=== PATIENT | female | born 2000 | race African-American/Black ===

== ENCOUNTER 2024-03-18 13:54 | Inpatient (IN) | payer MEDICAID ==
[~2024-03-18] VITALS: Ht 160 cm; Wt 52.6 kg
[2024-03-18] MEDS ORDERED: HydrOXYzine PAMOATE 50 MG CAPSULE PO PRN (14:45)
[2024-03-18] MEDS ORDERED: LORazepam 2 MG/ML VIAL IM ONE (14:45)
[2024-03-18] MEDS ORDERED: HALOPERIDOL LACTATE 5 MG/ML VIAL IM ONE (14:45)
[2024-03-18] MEDS ORDERED: MAG HYDROX/ALUMINUM HYD/SIMETH ES 30 ML SUSPENSION UDCUP PO PRN (14:45)
[2024-03-18] MEDS ORDERED: DiphenhydrAMINE HCL 50 MG/ML VIAL IM ONE (14:45)
[2024-03-18] MEDS ORDERED: LOPERAMIDE HCL 2 MG CAPSULE PO PRN (14:45)
[2024-03-18] MEDS ORDERED: MAGNESIUM HYDROXIDE SUSPENSION 30 ML UDCUP PO PRN (14:45)
[2024-03-18] MEDS ORDERED: ACETAMINOPHEN 325 MG TABLET PO PRN (14:45)
[2024-03-18] MEDS ORDERED: GuaiFENesin/D-METHORPHAN [SUGAR-FREE] 200-20MG/10 ML SYRUP UDCUP PO PRN (14:45)
[2024-03-18] MEDS: OLANZapine 5 MG RAPDIS TABLET PO SCH (16:00)
[2024-03-18] MEDS: LORazepam 2 MG TABLET PO PRN (16:29)
[2024-03-18 16:46] VITALS: BP 119/71; PULSE 68; RESP 17; TEMP 97.1; O2SAT 99
[2024-03-18] MEDS: TUBERCULIN, PURIFIED PROTEIN DERIVATIVE 5 TU/0.1 ML SYRINGE ID ONE (17:00)
[2024-03-18 17:35] LABS: GLUCOMETER DEV NAME(LOC) POC.BV; POC SARS-COV2 AG, FIA NEGATIVE (NEGATIVE)
[2024-03-18] MEDS: THIAMINE 100 MG TABLET PO SCH (20:16)
[2024-03-18] MEDS: MELATONIN 5 MG TABLET PO SCH (20:16)
[2024-03-18 20:34] VITALS: BP 112/70; PULSE 93; RESP 16; TEMP 97.5; O2SAT 99
[2024-03-19] MEDS: MULTIVITAMINS WITH MINERALS, THERAPEUTIC TABLET PO SCH (08:04)
[2024-03-19] MEDS: NALTREXONE HCL 50 MG TABLET PO SCH (08:04)
[2024-03-19] MEDS: FOLIC ACID 1 MG TABLET PO SCH (08:04)
[2024-03-19 08:34] VITALS: BP 126/89; PULSE 66; RESP 16; TEMP 98.2; O2SAT 97
[2024-03-19] MEDS: PROMETHAZINE HCL 25 MG TABLET PO PRN (12:27)
[2024-03-19] MEDS ORDERED: ACETAMINOPHEN 325 MG TABLET PO PRN (14:30)
[2024-03-19] MEDS ORDERED: PROMETHAZINE HCL 25 MG TABLET PO PRN (14:30)
[2024-03-19] MEDS ORDERED: MAGNESIUM HYDROXIDE SUSPENSION 30 ML UDCUP PO PRN (14:30)
[2024-03-19] MEDS ORDERED: HydrOXYzine PAMOATE 50 MG CAPSULE PO PRN (14:30)
[2024-03-19] MEDS ORDERED: GuaiFENesin/D-METHORPHAN [SUGAR-FREE] 200-20MG/10 ML SYRUP UDCUP PO PRN (14:30)
[2024-03-19] MEDS ORDERED: TUBERCULIN, PURIFIED PROTEIN DERIVATIVE 5 TU/0.1 ML SYRINGE ID ONE (14:30)
[2024-03-19] MEDS ORDERED: MAG HYDROX/ALUMINUM HYD/SIMETH ES 30 ML SUSPENSION UDCUP PO PRN (14:30)
[2024-03-19] MEDS ORDERED: LOPERAMIDE HCL 2 MG CAPSULE PO PRN (14:30)
[2024-03-19] MEDS: THIAMINE 100 MG TABLET PO SCH (17:00)
[2024-03-19 21:34] VITALS: BP 132/84; PULSE 88; RESP 16; TEMP 97.7; O2SAT 97
[2024-03-19] MEDS ORDERED: QUEtiapine FUMARATE 100 MG TABLET PO PRN (23:00)
[2024-03-19] MEDS: ZOLPIDEM TARTRATE 10 MG TABLET PO PRN (23:30)
[2024-03-20] MEDS: OLANZapine 5 MG RAPDIS TABLET PO SCH (08:18)
[2024-03-20 08:47] LABS: PH,URINE DRUG SCREEN 6.5 (5.0-8.0)
[2024-03-20 08:47] LABS: BASOPHILS % (AUTO) 0.6 % (0.0-2.0); EOSINOPHILS % (AUTO) 2.3 % (1.0-6.0); HEMATOCRIT 37.6 % (36-46); HEMOGLOBIN 12.5 g/dL (12.0-16.0); LYMPHOCYTES # (AUTO) 1.7 K/uL (1.0-4.8); LYMPHOCYTES % (AUTO) 37.4 % (22.0-44.0); MEAN CORPUSCULAR HEMOGLOBIN 30.9 pg (26.0-34.0); MEAN CORPUSCULAR HGB CONC 33.2 G/dL (31.0-37.0); MEAN CORPUSCULAR VOLUME 93 fL (80-100); MONOCYTES # (AUTO) 0.4 K/uL (0.1-1.0); MONOCYTES % (AUTO) 7.9 % (2.0-9.0); NEUTROPHILS # (AUTO) 2.4 K/uL (1.8-7.7); NEUTROPHILS % (AUTO) 51.8 % (40.0-70.0); PLATELET COUNT (AUTO) 231 K/uL (150-450); RED BLOOD CELL COUNT(AUTO) 4.05 MIL/uL (4.00-5.20); RED CELL DISTRIBUTION WIDTH 14.1 % (11.5-14.5); WHITE BLOOD COUNT (AUTO) 4.7 K/uL (4.5-11.0)
[2024-03-20 08:56] LABS: ALCOHOL, URINE DRUG SCREEN NEGATIVE (NEGATIVE); AMPHET/METH SCREEN,URINE NEGATIVE (NEGATIVE); BARBITURATE SCREEN, URINE NEGATIVE (NEGATIVE); BENZODIAZEPINES SCREEN,URINE NEGATIVE (NEGATIVE); CANNABINOID SCREEN,URINE POSITIVE (NEGATIVE); COCAINE SCREEN,URINE NEGATIVE (NEGATIVE); METHADONE SCREEN, URINE NEGATIVE (NEGATIVE); OPIATE SCREEN,URINE NEGATIVE (NEGATIVE); PHENCYCLIDINE SCREEN,URINE NEGATIVE (NEGATIVE)
[2024-03-20] MEDS ORDERED: MULTIVITAMINS WITH MINERALS, THERAPEUTIC TABLET PO SCH (09:00)
[2024-03-20] MEDS ORDERED: FOLIC ACID 1 MG TABLET PO SCH (09:00)
[2024-03-20 09:01] LABS: HEMOGLOBIN A1C 5.3 % (3.8-5.6)
[2024-03-20 09:24] LABS: ALANINE AMINOTRANSFERASE 48 U/L (12-78); ALBUMIN 3.8 g/dL (3.4-5.0); ALKALINE PHOSPHATASE 57 U/L (46-116); ANION GAP 7 mmol/L (8-16); ASPARTATE AMINOTRANSFERASE 28 U/L (15-37); BILIRUBIN,TOTAL 0.6 mg/dL (0.1-1.0); CALCIUM, TOTAL 8.8 mg/dL (8.8-10.5); CARBON DIOXIDE 28 mmol/L (22-29); CHLORIDE 104 mmol/L (98-107); CHOL/HDL RATIO 1.8 (3.9-5.7); CHOLESTEROL 145 mg/dL (131-200); CREATININE 0.56 mg/dL (0.60-1.30); FREE T4 (FREE THYROXINE) 0.94 ng/dL (0.76-1.46); GLOMERULAR FILTR. RATE CALC > 60 mL/min (>60); GLUCOSE,RANDOM 98 mg/dL (70-110); HDL CHOLESTEROL 81 mg/dL (40-60); LDL CHOL (CALC.) 60 mg/dL (0-130); POTASSIUM 3.5 mmol/L (3.5-5.1); SODIUM SERUM 139 mmol/L (136-145); THYROID STIMULATING HORMONE 0.37 uIU/mL (0.36-3.74); TRIGLYCERIDES 20 mg/dL (15-150); UREA NITROGEN, BLOOD 8 mg/dL (7-18)
[2024-03-20 09:24] LABS: HCG,QUAL URINE NEGATIVE (NEGATIVE)
[2024-03-20 09:56] VITALS: BP 119/80; PULSE 62; RESP 17; TEMP 98.2; O2SAT 97
[2024-03-20] MEDS: OLANZapine 10 MG RAPDIS TABLET PO SCH (20:09)
[2024-03-20] MEDS: QUEtiapine FUMARATE 200 MG TABLET PO SCH (20:09)
[2024-03-21 08:24] VITALS: BP 126/76; PULSE 68; RESP 16; TEMP 98; O2SAT 100
[2024-03-21] MEDS: DIVALPROEX SODIUM 500 MG DR TABLET PO SCH (16:11)
[2024-03-21] MEDS: NICOTINE POLACRILEX 2 MG LOZENGE PO PRN (16:45)
[2024-03-21 19:11] LABS: GLUCOMETER DEV NAME(LOC) POC.BV; POC SARS-COV2 AG, FIA NEGATIVE (NEGATIVE)
[2024-03-21] MEDS: QUEtiapine FUMARATE 200 MG TABLET PO SCH (20:16)
[2024-03-21] MEDS: OLANZapine 7.5 MG TABLET PO SCH (20:16)
[2024-03-21 20:36] VITALS: BP 131/81; PULSE 81; RESP 16; TEMP 98.2; O2SAT 98
[2024-03-22] MEDS: LITHIUM CARBONATE 300 MG CAPSULE PO SCH (08:31)
[2024-03-22 08:36] VITALS: RESP 16
[2024-03-22] MEDS: OLANZapine 5 MG RAPDIS TABLET PO PRN (13:41)
[2024-03-22 17:48] VITALS: BP 131/78
[2024-03-22 20:00] VITALS: BP 117/76; PULSE 67; RESP 16; TEMP 97.3; O2SAT 99
[2024-03-23 08:25] VITALS: BP 119/73; PULSE 94; RESP 16; TEMP 97.6; O2SAT 100
[2024-03-23] MEDS ORDERED: DIVA-112 PO (15:38)
[2024-03-23] MEDS ORDERED: LITH300C3 PO (15:39)
[2024-03-23] MEDS ORDERED: QUET200T PO (15:40)
== END 2024-03-23 17:50 | disposition home or self-care (01) | DRG 753 ==
LOC: B3A 14:31
PROVIDERS: ADMIT Psychiatry & Neurology Psychiatry; ATTEND Psychiatry & Neurology Psychiatry
DX: F31.9 Bipolar disorder, unspecified (principal); R45.851 Suicidal ideations; D64.9 Anemia, unspecified; F17.210 Nicotine dependence, cigarettes, uncomplicated; F12.90 Cannabis use, unspecified, uncomplicated; Z20.822 Contact with and (suspected) exposure to COVID-19; Z79.899 Other long term (current) drug therapy
CPT/HCPCS: 80053; 80061; 80307; 83036; 84439; 84443; 84703; 85025; 86592

== ENCOUNTER 2024-05-30 16:21 | Inpatient (IN) | payer OTHER, MEDICAID ==
[~2024-05-30] VITALS: Ht 160 cm; Wt 59.0 kg
[~2024-05-30 16:21] MED LIST: DIVA-112 PO; LITH300C3 PO; QUET200T PO
[2024-05-30] MEDS: LORazepam 2 MG/ML VIAL IM ONE (16:40)
[2024-05-30] MEDS: DiphenhydrAMINE HCL 50 MG/ML VIAL IM ONE (16:41)
[2024-05-30] MEDS: HALOPERIDOL LACTATE 5 MG/ML VIAL IM ONE (16:41)
[2024-05-30 17:45] LABS: BASOPHILS % (AUTO) 0.9 % (0.0-2.0); EOSINOPHILS % (AUTO) 1.1 % (1.0-6.0); HEMATOCRIT 40.3 % (36-46); HEMOGLOBIN 13.3 g/dL (12.0-16.0); LYMPHOCYTES # (AUTO) 2.5 K/uL (1.0-4.8); LYMPHOCYTES % (AUTO) 25.9 % (22.0-44.0); MEAN CORPUSCULAR HEMOGLOBIN 30.6 pg (26.0-34.0); MEAN CORPUSCULAR HGB CONC 33.1 G/dL (31.0-37.0); MEAN CORPUSCULAR VOLUME 93 fL (80-100); MONOCYTES # (AUTO) 0.5 K/uL (0.1-1.0); MONOCYTES % (AUTO) 4.6 % (2.0-9.0); NEUTROPHILS # (AUTO) 6.7 K/uL (1.8-7.7); NEUTROPHILS % (AUTO) 67.5 % (40.0-70.0); PLATELET COUNT (AUTO) 248 K/uL (150-450); RED BLOOD CELL COUNT(AUTO) 4.36 MIL/uL (4.00-5.20); RED CELL DISTRIBUTION WIDTH 14.1 % (11.5-14.5); WHITE BLOOD COUNT (AUTO) 9.9 K/uL (4.5-11.0)
[2024-05-30 18:02] LABS: ALCOHOL, BLOOD (SERUM) < 3 mg/dL (0-10)
[2024-05-30 18:06] LABS: COVID AG,FIA SOURCE NASAL SWAB
[2024-05-30 18:09] LABS: ANION GAP 9 mmol/L (8-16); CALCIUM, TOTAL 8.8 mg/dL (8.8-10.5); CARBON DIOXIDE 26 mmol/L (22-29); CHLORIDE 103 mmol/L (98-107); CREATININE 0.77 mg/dL (0.60-1.30); GLOMERULAR FILTR. RATE CALC > 60 mL/min (>60); GLUCOSE,RANDOM 86 mg/dL (70-110); POTASSIUM 3.3 mmol/L (3.5-5.1); SODIUM SERUM 138 mmol/L (136-145); UREA NITROGEN, BLOOD 11 mg/dL (7-18)
[2024-05-30 18:24] LABS: SARS-COV2 (COVID) ANTIGEN,FIA Negative (Negative)
[2024-05-30] MEDS: POTASSIUM CHLORIDE 20 MEQ ER TABLET PO ONE (22:49)
[2024-05-31] MEDS: LORazepam 2 MG/ML VIAL IM ONE (06:53)
[2024-05-31] MEDS: HALOPERIDOL LACTATE 5 MG/ML VIAL IM ONE (06:53)
[2024-05-31] MEDS: DiphenhydrAMINE HCL 50 MG/ML VIAL IM ONE (06:53)
[2024-05-31 11:04] VITALS: O2SAT 98
[2024-05-31 11:26] LABS: ALCOHOL, URINE DRUG SCREEN NEGATIVE (NEGATIVE); AMPHET/METH SCREEN,URINE NEGATIVE (NEGATIVE); BARBITURATE SCREEN, URINE NEGATIVE (NEGATIVE); BENZODIAZEPINES SCREEN,URINE NEGATIVE (NEGATIVE); CANNABINOID SCREEN,URINE POSITIVE (NEGATIVE); COCAINE SCREEN,URINE NEGATIVE (NEGATIVE); METHADONE SCREEN, URINE NEGATIVE (NEGATIVE); OPIATE SCREEN,URINE NEGATIVE (NEGATIVE); PHENCYCLIDINE SCREEN,URINE NEGATIVE (NEGATIVE)
[2024-05-31 13:38] VITALS: BP 128/81; PULSE 80; RESP 18; TEMP 98.2; O2SAT 95
[2024-05-31] MEDS ORDERED: IBUPROFEN 600 MG TABLET PO PRN (19:15)
[2024-05-31] MEDS ORDERED: DOCUSATE SODIUM 100 MG CAPSULE PO PRN (19:15)
[2024-05-31] MEDS ORDERED: CloNIDine HCL 0.1 MG TABLET PO PRN (19:15)
[2024-05-31] MEDS ORDERED: OMEPRAZOLE 20 MG CAPSULE PO PRN (19:15)
[2024-05-31] MEDS ORDERED: ACETAMINOPHEN 325 MG TABLET PO PRN (19:15)
[2024-05-31] MEDS ORDERED: BACITRACIN 28 GM OINTMENT TP PRN (19:15)
[2024-05-31] MEDS ORDERED: BENZOCAINE/MENTHOL LOZENGE PO PRN (19:15)
[2024-05-31] MEDS ORDERED: ONDANSETRON 4 MG TABLET PO PRN (19:15)
[2024-05-31] MEDS ORDERED: ALBUTEROL SULFATE HFA 90 MCG/PUFF 8 GM INHALER IH PRN (19:15)
[2024-05-31] MEDS ORDERED: LOPERAMIDE HCL 2 MG CAPSULE PO PRN (19:15)
[2024-05-31] MEDS ORDERED: MAG HYDROX/ALUMINUM HYD/SIMETH ES 30 ML SUSPENSION UDCUP PO PRN (19:15)
[2024-05-31] MEDS: INFLUENZA VIRUS VACCINE TVS (6MO+) 2024-25/PF 45 MCG/0.5 ML SYRINGE IM. ONE (20:18)
[2024-05-31] MEDS: ZOLPIDEM TARTRATE 10 MG TABLET PO PRN (20:18)
[2024-05-31 20:30] VITALS: BP 133/75; PULSE 91; RESP 16; TEMP 97.6; O2SAT 98
[2024-06-01] MEDS: HALOPERIDOL 5 MG TABLET PO PRN (03:00)
[2024-06-01] MEDS: LORazepam 2 MG TABLET PO PRN (03:00)
[2024-06-01 08:18] VITALS: BP 119/76; PULSE 99; RESP 16; TEMP 97.6; O2SAT 98
[2024-06-01 10:00] LABS: APPEARANCE,URINE CLEAR (CLEAR); BILIRUBIN,URINE NEGATIVE (NEGATIVE); COLOR,URINE COLORLESS (YELLOW); GLUCOSE, URINE (UA) NEGATIVE (NEGATIVE); KETONES,URINE NEGATIVE (NEGATIVE); LEUKOCYTE ESTERASE ,URINE SMALL (NEGATIVE); NITRATE,URINE NEGATIVE (NEGATIVE); OCCULT BLOOD,URINE NEGATIVE (NEGATIVE); PH,URINE 5.5 (5.0-8.0); PROTEIN,URINE NEGATIVE (NEGATIVE); SPECIFIC GRAVITIY, URINE 1.003 (1.003-1.030); UROBILINOGEN,URINE <=1.0 mg/dL (<=1.0)
[2024-06-01] MEDS ORDERED: NICOTINE POLACRILEX 2 MG LOZENGE PO PRN (10:00)
[2024-06-01 10:27] LABS: RBC,URINE None Seen /HPF (0-2)
[2024-06-01 10:28] LABS: BACTERIA,URINE Rare /HPF (None Seen)
[2024-06-01] MEDS: HALOPERIDOL LACTATE 5 MG/ML VIAL IM ONE (13:29)
[2024-06-01] MEDS: LORazepam 2 MG/ML VIAL IM ONE (13:29)
[2024-06-01] MEDS: DiphenhydrAMINE HCL 50 MG/ML VIAL IM ONE (13:30)
[2024-06-01] MEDS: MetroNIDAZOLE 500 MG TABLET PO SCH (16:45)
[2024-06-01] MEDS: DIVALPROEX SODIUM 500 MG DR TABLET PO SCH (17:00)
[2024-06-01] MEDS: QUEtiapine FUMARATE 200 MG TABLET PO SCH (20:10)
[2024-06-01 20:14] VITALS: BP 129/76; PULSE 95; RESP 17; TEMP 97.8; O2SAT 99
[2024-06-01] MEDS: PETROLATUM,WHITE 28 GM JELLY TP PRN (20:16)
[2024-06-02] MEDS: NICOTINE POLACRILEX 2 MG LOZENGE PO PRN (00:25)
[2024-06-02] MEDS: LITHIUM CARBONATE 300 MG CAPSULE PO SCH (08:35)
[2024-06-02 09:28] VITALS: BP 100/60; PULSE 85; RESP 16; TEMP 97.3; O2SAT 98
[2024-06-02 20:06] VITALS: BP 125/82; PULSE 87; RESP 18; TEMP 97.7
[2024-06-02] MEDS ORDERED: LORazepam 2 MG/ML VIAL ONE (23:52)
[2024-06-02] MEDS ORDERED: HALOPERIDOL LACTATE 5 MG/ML VIAL ONE (23:52)
[2024-06-02] MEDS ORDERED: DiphenhydrAMINE HCL 50 MG/ML VIAL ONE (23:52)
[2024-06-03] MEDS: LORazepam 2 MG/ML VIAL IM ONE ×2 (00:13→11:22)
[2024-06-03] MEDS: HALOPERIDOL LACTATE 5 MG/ML VIAL IM ONE ×2 (00:13→11:22)
[2024-06-03] MEDS: DiphenhydrAMINE HCL 50 MG/ML VIAL IM ONE ×2 (00:14→11:22)
[2024-06-03 08:15] VITALS: RESP 18
[2024-06-03 20:10] VITALS: BP 113/75; PULSE 90; RESP 18; TEMP 96.5; O2SAT 98
[2024-06-04 08:27] VITALS: BP 134/85; PULSE 102; RESP 17; TEMP 97.5; O2SAT 98
[2024-06-04] MEDS: QUEtiapine FUMARATE 200 MG TABLET PO SCH (09:00)
[2024-06-04] MEDS ORDERED: DiphenhydrAMINE HCL 50 MG/ML VIAL ONE (13:55)
[2024-06-04] MEDS ORDERED: HALOPERIDOL LACTATE 5 MG/ML VIAL ONE (13:55)
[2024-06-04] MEDS ORDERED: LORazepam 2 MG/ML VIAL ONE (13:55)
[2024-06-04] MEDS: LORazepam 2 MG/ML VIAL IM ONE (14:24)
[2024-06-04] MEDS: DiphenhydrAMINE HCL 50 MG/ML VIAL IM ONE (14:24)
[2024-06-04] MEDS: HALOPERIDOL LACTATE 5 MG/ML VIAL IM ONE (14:24)
[2024-06-04 20:06] VITALS: RESP 17
[2024-06-05 08:14] VITALS: BP 136/77; PULSE 84; RESP 17; TEMP 97.5; O2SAT 96
[2024-06-05] MEDS ORDERED: LORazepam 2 MG/ML VIAL ONE (13:31)
[2024-06-05] MEDS ORDERED: HALOPERIDOL LACTATE 5 MG/ML VIAL ONE (13:31)
[2024-06-05] MEDS ORDERED: DiphenhydrAMINE HCL 50 MG/ML VIAL ONE (13:31)
[2024-06-05] MEDS: HALOPERIDOL LACTATE 5 MG/ML VIAL IM ONE ×2 (14:16→14:42)
[2024-06-05] MEDS: LORazepam 2 MG/ML VIAL IM ONE ×2 (14:16→14:42)
[2024-06-05] MEDS: DiphenhydrAMINE HCL 50 MG/ML VIAL IM ONE ×2 (14:18→14:43)
[2024-06-06 08:14] VITALS: RESP 17
[2024-06-06 21:05] VITALS: BP 132/83; PULSE 101; RESP 15; TEMP 97.6; O2SAT 98
[2024-06-07 08:11] VITALS: BP 128/82; PULSE 77; RESP 16; TEMP 96.8; O2SAT 98
[2024-06-08 08:35] VITALS: BP 126/82; PULSE 84; RESP 16; TEMP 97.7; O2SAT 98
[2024-06-08 22:24] VITALS: RESP 18
[2024-06-09 08:20] VITALS: BP 124/87; PULSE 90; RESP 16; TEMP 96.7; O2SAT 99
[2024-06-09 22:45] VITALS: BP 115/66; PULSE 87; RESP 18; TEMP 98.2; O2SAT 96
[2024-06-10] MEDS: MAGNESIUM HYDROXIDE SUSPENSION 30 ML UDCUP PO PRN (06:37)
[2024-06-10 08:06] VITALS: BP 126/70; PULSE 82; RESP 16; TEMP 97.9; O2SAT 98
[2024-06-10] MEDS ORDERED: LITHIUM CARBONATE 300 MG CAPSULE PO SCH (21:00)
== END 2024-06-10 10:30 | disposition home or self-care (01) | DRG 885 ==
LOC: EMS 16:21 → B3A 05-31 12:25
PROVIDERS: ADMIT Psychiatry & Neurology Psychiatry; ATTEND Psychiatry & Neurology Psychiatry
DX: F31.9 Bipolar disorder, unspecified (principal); F12.10 Cannabis abuse, uncomplicated; F41.9 Anxiety disorder, unspecified; K21.9 Gastro-esophageal reflux disease without esophagitis; Z20.822 Contact with and (suspected) exposure to COVID-19; K59.00 Constipation, unspecified; G47.00 Insomnia, unspecified; E87.6 Hypokalemia; F17.200 Nicotine dependence, unspecified, uncomplicated; F22 Delusional disorders; R45.850 Homicidal ideations; Z79.899 Other long term (current) drug therapy
CPT/HCPCS: 80048; 80307; 81001; 84132; 84703; 85025; 99291; G0480; J1200; J1630; J2060

== ENCOUNTER 2024-06-10 18:57 | Inpatient (IN) | payer OTHER, MEDICAID ==
[~2024-06-10] VITALS: Ht 160 cm; Wt 59.0 kg
[2024-06-10] MEDS: LORazepam 2 MG/ML VIAL IM ONE (23:47)
[2024-06-10] MEDS: DiphenhydrAMINE HCL 50 MG/ML VIAL IM ONE (23:47)
[2024-06-10] MEDS: HALOPERIDOL LACTATE 5 MG/ML VIAL IM ONE (23:48)
[2024-06-11 01:24] LABS: COVID AG,FIA SOURCE NASAL SWAB
[2024-06-11 01:35] LABS: SARS-COV2 (COVID) ANTIGEN,FIA Negative (Negative)
[2024-06-11] MEDS: ChlorproMAZINE HCL 50 MG/2 ML AMP IM ONE (02:04)
[2024-06-11 02:32] VITALS: O2SAT 99
[2024-06-11 03:43] VITALS: BP 119/56; PULSE 93; RESP 17
[2024-06-11] MEDS ORDERED: INFLUENZA VIRUS VACCINE TVS (6MO+) 2024-25/PF 45 MCG/0.5 ML SYRINGE IM. ONE (04:15)
[2024-06-11 08:11] VITALS: RESP 16
[2024-06-11] MEDS: DiphenhydrAMINE HCL 50 MG/ML VIAL IM ONE (09:51)
[2024-06-11] MEDS: LORazepam 2 MG/ML VIAL IM ONE (09:52)
[2024-06-11] MEDS: HALOPERIDOL LACTATE 5 MG/ML VIAL IM ONE (09:52)
[2024-06-11] MEDS ORDERED: ALBUTEROL SULFATE HFA 90 MCG/PUFF 8 GM INHALER IH PRN (11:00)
[2024-06-11] MEDS ORDERED: CloNIDine HCL 0.1 MG TABLET PO PRN (11:00)
[2024-06-11] MEDS ORDERED: ONDANSETRON 4 MG TABLET PO PRN (11:00)
[2024-06-11] MEDS ORDERED: OMEPRAZOLE 20 MG CAPSULE PO PRN (11:00)
[2024-06-11] MEDS ORDERED: LOPERAMIDE HCL 2 MG CAPSULE PO PRN (11:00)
[2024-06-11] MEDS ORDERED: ACETAMINOPHEN 325 MG TABLET PO PRN (11:00)
[2024-06-11] MEDS ORDERED: MAG HYDROX/ALUMINUM HYD/SIMETH ES 30 ML SUSPENSION UDCUP PO PRN (11:00)
[2024-06-11] MEDS ORDERED: BENZOCAINE/MENTHOL LOZENGE PO PRN (11:00)
[2024-06-11] MEDS ORDERED: MAGNESIUM HYDROXIDE SUSPENSION 30 ML UDCUP PO PRN (11:00)
[2024-06-11] MEDS ORDERED: PETROLATUM,WHITE 28 GM JELLY TP PRN (11:00)
[2024-06-11] MEDS ORDERED: IBUPROFEN 600 MG TABLET PO PRN (11:00)
[2024-06-11] MEDS ORDERED: DOCUSATE SODIUM 100 MG CAPSULE PO PRN (11:00)
[2024-06-11] MEDS ORDERED: BACITRACIN 28 GM OINTMENT TP PRN (11:00)
[2024-06-11 15:21] LABS: APPEARANCE,URINE CLEAR (CLEAR); BILIRUBIN,URINE NEGATIVE (NEGATIVE); COLOR,URINE LIGHT YELLOW (YELLOW); GLUCOSE, URINE (UA) NEGATIVE (NEGATIVE); KETONES,URINE NEGATIVE (NEGATIVE); LEUKOCYTE ESTERASE ,URINE NEGATIVE (NEGATIVE); NITRATE,URINE NEGATIVE (NEGATIVE); OCCULT BLOOD,URINE NEGATIVE (NEGATIVE); PROTEIN,URINE NEGATIVE (NEGATIVE); UROBILINOGEN,URINE <=1.0 mg/dL (<=1.0)
[2024-06-11 15:28] LABS: ALCOHOL, URINE DRUG SCREEN NEGATIVE (NEGATIVE); AMPHET/METH SCREEN,URINE NEGATIVE (NEGATIVE); BARBITURATE SCREEN, URINE NEGATIVE (NEGATIVE); BENZODIAZEPINES SCREEN,URINE NEGATIVE (NEGATIVE); CANNABINOID SCREEN,URINE NEGATIVE (NEGATIVE); COCAINE SCREEN,URINE NEGATIVE (NEGATIVE); METHADONE SCREEN, URINE NEGATIVE (NEGATIVE); OPIATE SCREEN,URINE NEGATIVE (NEGATIVE); PHENCYCLIDINE SCREEN,URINE NEGATIVE (NEGATIVE)
[2024-06-11] MEDS: DIVALPROEX SODIUM 500 MG DR TABLET PO SCH (16:29)
[2024-06-11] MEDS: LITHIUM CARBONATE 300 MG CAPSULE PO SCH (16:30)
[2024-06-11] MEDS ORDERED: LITHIUM CARBONATE 300 MG CAPSULE PO SCH (17:00)
[2024-06-11] MEDS: QUEtiapine FUMARATE 200 MG TABLET PO SCH (20:06)
[2024-06-11 20:11] VITALS: BP 122/64; PULSE 89; RESP 16; TEMP 97.5; O2SAT 98
[2024-06-12 08:16] VITALS: BP 121/64; PULSE 100; RESP 16; TEMP 96.9; O2SAT 100
[2024-06-12] MEDS: LORazepam 2 MG TABLET PO PRN (08:33)
[2024-06-12] MEDS: HALOPERIDOL 5 MG TABLET PO PRN (08:33)
[2024-06-12 20:14] VITALS: BP 120/63; PULSE 95; RESP 18; TEMP 97.9; O2SAT 100
[2024-06-12] MEDS: ZOLPIDEM TARTRATE 10 MG TABLET PO PRN (21:03)
[2024-06-13 08:24] VITALS: RESP 16
[2024-06-13] MEDS: QUEtiapine FUMARATE 200 MG TABLET PO SCH (19:07)
[2024-06-13 20:18] VITALS: BP 127/78; PULSE 93; RESP 16; TEMP 98; O2SAT 93
[2024-06-14] MEDS ORDERED: DIVA-112 PO (11:41)
[2024-06-14] MEDS ORDERED: QUET200T30 PO (11:41)
[2024-06-14] MEDS ORDERED: LITH300C3 PO (11:41)
== END 2024-06-14 13:00 | disposition home or self-care (01) | DRG 885 ==
LOC: EMS 18:57 → B3A 06-11 03:12 → B2S 06-13 16:41
PROVIDERS: ADMIT Psychiatry & Neurology Psychiatry; ATTEND Psychiatry & Neurology Psychiatry
DX: F31.9 Bipolar disorder, unspecified (principal); F20.9 Schizophrenia, unspecified; F41.9 Anxiety disorder, unspecified; G47.00 Insomnia, unspecified; K21.9 Gastro-esophageal reflux disease without esophagitis; K59.00 Constipation, unspecified; F17.200 Nicotine dependence, unspecified, uncomplicated; Z20.822 Contact with and (suspected) exposure to COVID-19; Z79.899 Other long term (current) drug therapy
CPT/HCPCS: 80307; 81003; 87081; 99291; J1200; J1630; J2060; J3230

== ENCOUNTER 2024-06-13 11:51 | Emergency (ER) | payer OTHER, MEDICAID ==
[~2024-06-13] VITALS: Ht 162.6 cm; Wt 60.5 kg
[2024-06-13 12:40] VITALS: TEMP 98.1
[2024-06-13 14:01] VITALS: BP 130/67; PULSE 90; RESP 14; O2SAT 99
[2024-06-14] MEDS ORDERED: DIVA-112 PO (11:41)
[2024-06-14] MEDS ORDERED: LITH300C3 PO (11:41)
[2024-06-14] MEDS ORDERED: QUET200T30 PO (11:41)
== END 2024-06-13 14:50 | disposition home or self-care (01) ==
LOC: EMS 11:51
DX: S09.90XA Unspecified injury of head, initial encounter (principal); F31.9 Bipolar disorder, unspecified; F17.210 Nicotine dependence, cigarettes, uncomplicated; F12.90 Cannabis use, unspecified, uncomplicated; W22.8XXA Striking against or struck by other objects, initial encounter; Y93.89 Activity, other specified; Y92.89 Other specified places as the place of occurrence of the external cause; Y99.8 Other external cause status
CPT/HCPCS: 99281; Z7502

== ENCOUNTER 2024-06-19 04:51 | Inpatient (IN) | payer OTHER, MEDICAID ==
[~2024-06-19] VITALS: Ht 160 cm; Wt 133.9 kg
[~2024-06-19 04:51] MED LIST changes: +QUET200T30 PO
[2024-06-19] MEDS: DiphenhydrAMINE HCL 50 MG/ML VIAL IM ONE (05:08)
[2024-06-19] MEDS: LORazepam 2 MG/ML VIAL IM ONE (05:09)
[2024-06-19] MEDS: HALOPERIDOL LACTATE 5 MG/ML VIAL IM ONE (05:17)
[2024-06-19] MEDS ORDERED: HALOPERIDOL 5 MG TABLET PO PRN (06:00)
[2024-06-19 09:11] LABS: COVID AG,FIA SOURCE NASAL SWAB
[2024-06-19 09:15] LABS: BASOPHILS % (AUTO) 0.6 % (0.0-2.0); EOSINOPHILS % (AUTO) 1.6 % (1.0-6.0); HEMATOCRIT 38.7 % (36-46); HEMOGLOBIN 13.1 g/dL (12.0-16.0); LYMPHOCYTES # (AUTO) 2.1 K/uL (1.0-4.8); LYMPHOCYTES % (AUTO) 31.6 % (22.0-44.0); MEAN CORPUSCULAR HEMOGLOBIN 31.2 pg (26.0-34.0); MEAN CORPUSCULAR HGB CONC 33.9 G/dL (31.0-37.0); MEAN CORPUSCULAR VOLUME 92 fL (80-100); MONOCYTES # (AUTO) 0.6 K/uL (0.1-1.0); MONOCYTES % (AUTO) 8.4 % (2.0-9.0); NEUTROPHILS # (AUTO) 3.9 K/uL (1.8-7.7); NEUTROPHILS % (AUTO) 57.8 % (40.0-70.0); PLATELET COUNT (AUTO) 307 K/uL (150-450); RED BLOOD CELL COUNT(AUTO) 4.21 MIL/uL (4.00-5.20); WHITE BLOOD COUNT (AUTO) 6.8 K/uL (4.5-11.0)
[2024-06-19 09:28] LABS: ANION GAP 5 mmol/L (8-16); CALCIUM, TOTAL 8.7 mg/dL (8.8-10.5); CARBON DIOXIDE 28 mmol/L (22-29); CHLORIDE 104 mmol/L (98-107); CREATININE 0.66 mg/dL (0.60-1.30); GLOMERULAR FILTR. RATE CALC > 60 mL/min (>60); GLUCOSE,RANDOM 95 mg/dL (70-110); POTASSIUM 3.6 mmol/L (3.5-5.1); SODIUM SERUM 137 mmol/L (136-145); UREA NITROGEN, BLOOD 8 mg/dL (7-18)
[2024-06-19 09:55] LABS: ALCOHOL, BLOOD (SERUM) < 3 mg/dL (0-10)
[2024-06-19 10:15] LABS: SARS-COV2 (COVID) ANTIGEN,FIA Negative (Negative)
[2024-06-19 12:21] VITALS: O2SAT 100
[2024-06-19] MEDS ORDERED: MAG HYDROX/ALUMINUM HYD/SIMETH ES 30 ML SUSPENSION UDCUP PO PRN (13:00)
[2024-06-19] MEDS ORDERED: BENZOCAINE/MENTHOL LOZENGE PO PRN (13:00)
[2024-06-19] MEDS ORDERED: PETROLATUM,WHITE 28 GM JELLY TP PRN ×2 (13:00→19:30)
[2024-06-19] MEDS ORDERED: IBUPROFEN 600 MG TABLET PO PRN (13:00)
[2024-06-19] MEDS ORDERED: DOCUSATE SODIUM 100 MG CAPSULE PO PRN (13:00)
[2024-06-19] MEDS ORDERED: MAGNESIUM HYDROXIDE SUSPENSION 30 ML UDCUP PO PRN (13:00)
[2024-06-19] MEDS ORDERED: OMEPRAZOLE 20 MG CAPSULE PO PRN (13:00)
[2024-06-19] MEDS ORDERED: ALBUTEROL SULFATE HFA 90 MCG/PUFF 8 GM INHALER IH PRN (13:00)
[2024-06-19] MEDS ORDERED: ACETAMINOPHEN 325 MG TABLET PO PRN (13:00)
[2024-06-19] MEDS ORDERED: BACITRACIN 28 GM OINTMENT TP PRN (13:00)
[2024-06-19] MEDS ORDERED: CloNIDine HCL 0.1 MG TABLET PO PRN (13:00)
[2024-06-19] MEDS ORDERED: LOPERAMIDE HCL 2 MG CAPSULE PO PRN (13:00)
[2024-06-19] MEDS ORDERED: ONDANSETRON 4 MG TABLET PO PRN (13:00)
[2024-06-19 15:39] VITALS: BP 129/86; PULSE 78; RESP 18; TEMP 97.8; O2SAT 98
[2024-06-19 18:56] LABS: PH,URINE DRUG SCREEN 6.5 (5.0-8.0)
[2024-06-19 19:04] LABS: ALCOHOL, URINE DRUG SCREEN NEGATIVE (NEGATIVE); AMPHET/METH SCREEN,URINE NEGATIVE (NEGATIVE); BARBITURATE SCREEN, URINE NEGATIVE (NEGATIVE); BENZODIAZEPINES SCREEN,URINE NEGATIVE (NEGATIVE); CANNABINOID SCREEN,URINE POSITIVE (NEGATIVE); COCAINE SCREEN,URINE NEGATIVE (NEGATIVE); METHADONE SCREEN, URINE NEGATIVE (NEGATIVE); OPIATE SCREEN,URINE NEGATIVE (NEGATIVE); PHENCYCLIDINE SCREEN,URINE NEGATIVE (NEGATIVE)
[2024-06-19] MEDS: ZOLPIDEM TARTRATE 10 MG TABLET PO PRN (21:07)
[2024-06-19] MEDS: LORazepam 2 MG TABLET PO PRN (21:07)
[2024-06-19 21:33] VITALS: BP 126/81; PULSE 82; RESP 18; TEMP 97.9
[2024-06-20] MEDS ORDERED: INFLUENZA VIRUS VACCINE TVS (6MO+) 2024-25/PF 45 MCG/0.5 ML SYRINGE IM. ONE (06:45)
[2024-06-20 13:20] VITALS: BP 131/90; PULSE 83; RESP 17; TEMP 98.4; O2SAT 100
[2024-06-20] MEDS: QUEtiapine FUMARATE 200 MG TABLET PO SCH (17:21)
[2024-06-20] MEDS: LITHIUM CARBONATE 300 MG CAPSULE PO SCH (17:22)
[2024-06-20] MEDS: DIVALPROEX SODIUM 500 MG DR TABLET PO SCH (17:22)
[2024-06-20 21:40] VITALS: RESP 18
[2024-06-21 09:28] VITALS: RESP 18
[2024-06-21] MEDS: PALIPERIDONE PALMITATE 234 MG/1.5 ML SYRINGE IM SCH (13:17)
[2024-06-21] MEDS: LORazepam 2 MG/ML VIAL IM ONE (20:27)
[2024-06-21] MEDS: HALOPERIDOL LACTATE 5 MG/ML VIAL IM ONE (20:28)
[2024-06-21] MEDS: DiphenhydrAMINE HCL 50 MG/ML VIAL IM ONE (20:28)
[2024-06-22 10:46] VITALS: BP 105/69; PULSE 72; RESP 18; TEMP 97.3; O2SAT 99
[2024-06-22 22:49] VITALS: RESP 18
[2024-06-23 11:04] VITALS: BP 103/62; PULSE 83; RESP 18; TEMP 97.6; O2SAT 100
[2024-06-23 20:04] VITALS: RESP 18
[2024-06-24 09:00] VITALS: RESP 19
[2024-06-24 13:37] LABS: LITHIUM 0.6 mmol/L (0.60-1.20)
[2024-06-24] MEDS ORDERED: LITH300C3 PO (16:31)
[2024-06-24] MEDS ORDERED: QUET400T PO (16:31)
[2024-06-24 23:25] VITALS: RESP 18
[2024-06-25 10:18] VITALS: BP 143/71; PULSE 97; RESP 18; TEMP 97.9; O2SAT 100
== END 2024-06-25 11:50 | disposition home or self-care (01) | DRG 885 ==
LOC: EMS 04:52 → 3EC 11:39
PROVIDERS: ADMIT Psychiatry & Neurology Psychiatry; ATTEND Psychiatry & Neurology Psychiatry
PROC: GZ52ZZZ Individual Psychotherapy, Cognitive (ICD-10-PCS; principal; 2024-06-20)
DX: F25.0 Schizoaffective disorder, bipolar type (principal); Z20.822 Contact with and (suspected) exposure to COVID-19; K21.9 Gastro-esophageal reflux disease without esophagitis; K59.00 Constipation, unspecified; F41.9 Anxiety disorder, unspecified; G47.00 Insomnia, unspecified; F17.210 Nicotine dependence, cigarettes, uncomplicated; F12.10 Cannabis abuse, uncomplicated; Z91.199 Patient's noncompliance with other medical treatment and regimen due to unspecified reason; Z91.148 Patient's other noncompliance with medication regimen for other reason; Z79.899 Other long term (current) drug therapy
CPT/HCPCS: 80048; 80164; 80178; 80307; 84703; 85025; 86592; 99285; G0480; J1200; J1630; J2060

== ENCOUNTER 2024-08-15 17:54 | Inpatient (IN) | payer OTHER, MEDICAID ==
[~2024-08-15] VITALS: Ht 160 cm; Wt 61.7 kg
[~2024-08-15 17:54] MED LIST changes: -QUET200T PO; -QUET200T30 PO; +QUET400T PO
[2024-08-15] MEDS: LORazepam 2 MG/ML VIAL IM ONE (18:29)
[2024-08-15] MEDS: DiphenhydrAMINE HCL 50 MG/ML VIAL IM ONE (18:29)
[2024-08-15] MEDS ORDERED: LORazepam 2 MG TABLET PO PRN (18:30)
[2024-08-15] MEDS: HALOPERIDOL LACTATE 5 MG/ML VIAL IM ONE (18:30)
[2024-08-15] MEDS ORDERED: HALOPERIDOL 5 MG TABLET PO PRN (18:30)
[2024-08-15] MEDS: ZIPRASIDONE MESYLATE 20 MG/VIAL IM ONE (19:09)
[2024-08-15] MEDS ORDERED: ChlorproMAZINE HCL 50 MG/2 ML AMP IM ONE (19:30)
[2024-08-15 20:46] LABS: COVID AG,FIA SOURCE NASAL SWAB
[2024-08-15 21:08] LABS: SARS-COV2 (COVID) ANTIGEN,FIA Negative (Negative)
[2024-08-15 22:29] VITALS: RESP 18; TEMP 97.8
[2024-08-16] VITALS: RESP 17; TEMP 97.8
[2024-08-16 01:28] VITALS: BP 81/50; RESP 17; O2SAT 98
[2024-08-16 01:34] VITALS: BP 81/50; PULSE 70; RESP 17; TEMP 97.8; O2SAT 98
[2024-08-16 09:27] VITALS: RESP 18
[2024-08-16] MEDS ORDERED: ALBUTEROL SULFATE HFA 90 MCG/PUFF 8 GM INHALER IH PRN (10:15)
[2024-08-16] MEDS ORDERED: DOCUSATE SODIUM 100 MG CAPSULE PO PRN (10:15)
[2024-08-16] MEDS ORDERED: CloNIDine HCL 0.1 MG TABLET PO PRN (10:15)
[2024-08-16] MEDS ORDERED: MAGNESIUM HYDROXIDE SUSPENSION 30 ML UDCUP PO PRN (10:15)
[2024-08-16] MEDS ORDERED: ONDANSETRON 4 MG TABLET PO PRN (10:15)
[2024-08-16] MEDS ORDERED: BENZOCAINE/MENTHOL LOZENGE PO PRN (10:15)
[2024-08-16] MEDS ORDERED: PETROLATUM,WHITE 28 GM JELLY TP PRN (10:15)
[2024-08-16] MEDS ORDERED: ACETAMINOPHEN 325 MG TABLET PO PRN (10:15)
[2024-08-16] MEDS ORDERED: MAG HYDROX/ALUMINUM HYD/SIMETH ES 30 ML SUSPENSION UDCUP PO PRN (10:15)
[2024-08-16] MEDS ORDERED: LOPERAMIDE HCL 2 MG CAPSULE PO PRN (10:15)
[2024-08-16] MEDS ORDERED: IBUPROFEN 600 MG TABLET PO PRN (10:15)
[2024-08-16] MEDS ORDERED: OMEPRAZOLE 20 MG CAPSULE PO PRN (10:15)
[2024-08-16] MEDS ORDERED: BACITRACIN 28 GM OINTMENT TP PRN (10:15)
[2024-08-16 13:08] LABS: BASOPHILS % (AUTO) 0.7 % (0.0-2.0); EOSINOPHILS % (AUTO) 1.2 % (1.0-6.0); HEMATOCRIT 46.3 % (36-46); HEMOGLOBIN 15.2 g/dL (12.0-16.0); LYMPHOCYTES # (AUTO) 1.7 K/uL (1.0-4.8); LYMPHOCYTES % (AUTO) 24.5 % (22.0-44.0); MEAN CORPUSCULAR HEMOGLOBIN 30.6 pg (26.0-34.0); MEAN CORPUSCULAR HGB CONC 32.8 G/dL (31.0-37.0); MEAN CORPUSCULAR VOLUME 93 fL (80-100); MONOCYTES # (AUTO) 0.7 K/uL (0.1-1.0); MONOCYTES % (AUTO) 9.4 % (2.0-9.0); NEUTROPHILS # (AUTO) 4.5 K/uL (1.8-7.7); NEUTROPHILS % (AUTO) 64.2 % (40.0-70.0); PLATELET COUNT (AUTO) 299 K/uL (150-450); RED BLOOD CELL COUNT(AUTO) 4.96 MIL/uL (4.00-5.20); RED CELL DISTRIBUTION WIDTH 14.3 % (11.5-14.5)
[2024-08-16 13:21] LABS: ANION GAP 10 mmol/L (8-16); CALCIUM, TOTAL 9.3 mg/dL (8.8-10.5); CARBON DIOXIDE 24 mmol/L (22-29); CHLORIDE 101 mmol/L (98-107); CREATININE 0.96 mg/dL (0.60-1.30); GLOMERULAR FILTR. RATE CALC > 60 mL/min (>60); GLUCOSE,RANDOM 87 mg/dL (70-110); POTASSIUM 4.2 mmol/L (3.5-5.1); SODIUM SERUM 135 mmol/L (136-145); UREA NITROGEN, BLOOD 15 mg/dL (7-18)
[2024-08-16 13:31] LABS: HEMOGLOBIN A1C 5.1 % (3.8-5.6)
[2024-08-16 13:32] LABS: CHOL/HDL RATIO 2.2 (3.9-5.7); CHOLESTEROL 189 mg/dL (131-200); HCG,QUANTITATIVE < 1 mIU/mL (0-6); HDL CHOLESTEROL 87 mg/dL (40-60); LDL CHOL (CALC.) 97 mg/dL (0-130); TRIGLYCERIDES 24 mg/dL (15-150)
[2024-08-16 13:34] LABS: VALPROIC ACID < 3 mcg/mL (50-100)
[2024-08-16 13:35] LABS: APPEARANCE,URINE CLEAR (CLEAR); BILIRUBIN,URINE NEGATIVE (NEGATIVE); COLOR,URINE LIGHT YELLOW (YELLOW); GLUCOSE, URINE (UA) NEGATIVE (NEGATIVE); KETONES,URINE TRACE mg/dL (NEGATIVE); LEUKOCYTE ESTERASE ,URINE NEGATIVE (NEGATIVE); NITRATE,URINE NEGATIVE (NEGATIVE); OCCULT BLOOD,URINE NEGATIVE (NEGATIVE); PH,URINE 5.5 (5.0-8.0); PROTEIN,URINE NEGATIVE (NEGATIVE); SPECIFIC GRAVITIY, URINE 1.009 (1.003-1.030); UROBILINOGEN,URINE <=1.0 mg/dL (<=1.0)
[2024-08-16 13:40] LABS: ALCOHOL, BLOOD (SERUM) < 3 mg/dL (0-10); LITHIUM < 0.20 mmol/L (0.60-1.20)
[2024-08-16 13:42] LABS: ALCOHOL, URINE DRUG SCREEN NEGATIVE (NEGATIVE); AMPHET/METH SCREEN,URINE NEGATIVE (NEGATIVE); BARBITURATE SCREEN, URINE NEGATIVE (NEGATIVE); BENZODIAZEPINES SCREEN,URINE POSITIVE (NEGATIVE); CANNABINOID SCREEN,URINE POSITIVE (NEGATIVE); COCAINE SCREEN,URINE NEGATIVE (NEGATIVE); METHADONE SCREEN, URINE NEGATIVE (NEGATIVE); OPIATE SCREEN,URINE NEGATIVE (NEGATIVE); PHENCYCLIDINE SCREEN,URINE NEGATIVE (NEGATIVE)
[2024-08-16 13:43] LABS: PH,URINE DRUG SCREEN 5.5 (5.0-8.0)
[2024-08-16] MEDS: DiphenhydrAMINE HCL 50 MG/ML VIAL IM ONE (21:06)
[2024-08-16] MEDS: ChlorproMAZINE HCL 50 MG/2 ML AMP IM ONE (21:06)
[2024-08-16] MEDS: LORazepam 2 MG/ML VIAL IM ONE (21:06)
[2024-08-16] MEDS: ZOLPIDEM TARTRATE 10 MG TABLET PO PRN (21:17)
[2024-08-16 21:46] VITALS: BP 122/73; PULSE 78; RESP 18; TEMP 97.2; O2SAT 98
[2024-08-16] MEDS ORDERED: ChlorproMAZINE HCL 100 MG TABLET PO PRN (23:00)
[2024-08-16] MEDS ORDERED: MELATONIN 5 MG TABLET PO PRN (23:00)
[2024-08-16] MEDS ORDERED: ZOLPIDEM TARTRATE 5 MG TABLET PO PRN (23:00)
[2024-08-17] MEDS: OLANZapine 5 MG TABLET PO SCH (06:23)
[2024-08-17] MEDS: DIVALPROEX SODIUM 500 MG DR TABLET PO SCH (06:25)
[2024-08-17] MEDS ORDERED: OLANZapine 5 MG TABLET PO SCH (09:00)
[2024-08-17 09:20] VITALS: BP 132/84; PULSE 69; RESP 16; TEMP 97.6; O2SAT 97
[2024-08-17] MEDS: NICOTINE POLACRILEX 2 MG LOZENGE PO PRN (12:52)
[2024-08-17] MEDS: LORazepam 1 MG TABLET PO PRN (15:37)
[2024-08-17] MEDS ORDERED: PREN-217 PO (18:06)
[2024-08-17] MEDS: PRENATAL NO.137/IRON/FOLIC ACID TABLET PO ONE (18:15)
[2024-08-17] MEDS ORDERED: LITHIUM CARBONATE 600 MG CAPSULE PO SCH (21:00)
[2024-08-18] MEDS ORDERED: PRENATAL NO.137/IRON/FOLIC ACID TABLET PO SCH (09:00)
== END 2024-08-18 10:30 | disposition home or self-care (01) | DRG 885 ==
LOC: EMS 17:54 → 3EC 23:29 → UNDOADMIN 08-16 00:42
PROVIDERS: ADMIT Psychiatry & Neurology Psychiatry; ATTEND Psychiatry & Neurology Psychiatry
PROC: GZHZZZZ Group Psychotherapy (ICD-10-PCS; principal; 2024-08-17)
PROC: GZ51ZZZ Individual Psychotherapy, Behavioral (ICD-10-PCS; 2024-08-17)
DX: F25.0 Schizoaffective disorder, bipolar type (principal); G93.41 Metabolic encephalopathy; F17.200 Nicotine dependence, unspecified, uncomplicated; K21.9 Gastro-esophageal reflux disease without esophagitis; Z20.822 Contact with and (suspected) exposure to COVID-19; K59.00 Constipation, unspecified; F12.90 Cannabis use, unspecified, uncomplicated; F41.9 Anxiety disorder, unspecified; G47.00 Insomnia, unspecified
CPT/HCPCS: 80048; 80061; 80164; 80178; 80307; 81003; 83036; 84702; 85025; 99285; G0480; J1200; J1630; J2060; J3230; J3486